=== PATIENT | female | born 1980 | race Caucasian/White ===

== ENCOUNTER → 2018-04-27 | Outpatient (CLI) | payer BC, OTHER ==
[~2018-04-27] MED LIST: LEVOXYL0.075 MG PO; ZOFRAN 4MG T4 MG/TAB PO
== END ==
LOC: MC.RAD 13:35
DX: Z12.31 Encounter for screening mammogram for malignant neoplasm of breast (principal)

== ENCOUNTER → 2019-06-22 | Outpatient (CLI) | payer BC, OTHER | LOC: MC.RAD 09:11 | DX: Z12.31 Encounter for screening mammogram for malignant neoplasm of breast (principal) ==

== ENCOUNTER → 2020-07-25 | Outpatient (CLI) | payer BC, OTHER | LOC: MC.RAD 07-24 13:00 | DX: Z12.31 Encounter for screening mammogram for malignant neoplasm of breast (principal); N64.89 Other specified disorders of breast ==

== ENCOUNTER → 2020-08-02 | Outpatient (CLI) | payer BC, OTHER | LOC: MC.RAD 14:20 | DX: N64.89 Other specified disorders of breast (principal) ==

== ENCOUNTER → 2021-07-26 | Outpatient (CLI) | payer BC, OTHER | LOC: MC.RAD 08:48 | DX: Z12.31 Encounter for screening mammogram for malignant neoplasm of breast (principal) ==

== ENCOUNTER → 2022-07-30 | Outpatient (CLI) | payer BC, OTHER | LOC: MC.RAD 09:03 | DX: Z12.31 Encounter for screening mammogram for malignant neoplasm of breast (principal) ==

== ENCOUNTER → 2024-08-04 | Outpatient (CLI) | payer BC, OTHER ==
[~2024-08-04] MED LIST changes: +BACTRIM DS 8001 TAB PO; +DOXYCYCLINE 10100 MG PO
== END ==
LOC: MC.RAD 12:50
DX: Z12.31 Encounter for screening mammogram for malignant neoplasm of breast (principal); N64.89 Other specified disorders of breast